=== PATIENT | female | born 1995 | race Hispanic/Latino ===

== ENCOUNTER 2023-03-06 16:11 | Emergency (ER) | payer OTHER ==
[2023-03-06 17:55] LABS: SARS-CoV-2 NAA Rapid Test Not Detected (NotDetected)
== END 2023-03-06 17:05 | disposition home or self-care (01) ==
LOC: CSHERS 16:11
DX: O99.512 Diseases of the respiratory system complicating pregnancy, second trimester (principal); J06.9 Acute upper respiratory infection, unspecified; Z3A.16 16 weeks gestation of pregnancy; Z20.822 Contact with and (suspected) exposure to COVID-19

== ENCOUNTER 2023-07-22 19:36 | Emergency (ER) | payer OTHER ==
[2023-07-23] MEDS ORDERED: HYDROcodone/Acetaminophen 10/325 mg Tablet ONE (02:14)
[2023-07-23] MEDS ORDERED: predniSONE 20 MG TAB ONE (02:14)
== END 2023-07-22 20:07 | disposition home or self-care (01) ==
LOC: CSHERS 19:36
DX: H66.92 Otitis media, unspecified, left ear (principal); H73.92 Unspecified disorder of tympanic membrane, left ear
CPT/HCPCS: 99282

== ENCOUNTER 2023-07-22 20:07 | Day surgery (SDC) | payer OTHER ==
[2023-07-22 20:57] VITALS: BMI 36.8
[2023-07-22 21:12] LABS: Fetal Membranes Rupture No Membranes Rupture (No Rupture)
[2023-07-22] MEDS ORDERED: hydrALAZINE 20 MG/ML VIAL SLOW IVP PRN (21:41)
== END 2023-07-22 21:39 | disposition home or self-care (01) ==
LOC: CSHLD/OP 20:07
PROVIDERS: ATTEND Obstetrics & Gynecology
DX: O47.03 False labor before 37 completed weeks of gestation, third trimester (principal); Z03.71 Encounter for suspected problem with amniotic cavity and membrane ruled out; O99.343 Other mental disorders complicating pregnancy, third trimester; F39 Unspecified mood [affective] disorder; O99.891 Other specified diseases and conditions complicating pregnancy; H66.90 Otitis media, unspecified, unspecified ear; Z79.899 Other long term (current) drug therapy; Z91.018 Allergy to other foods; Z88.5 Allergy status to narcotic agent; Z3A.36 36 weeks gestation of pregnancy
CPT/HCPCS: 84112; 99282

== ENCOUNTER 2023-07-23 01:55 | Emergency (ER) | payer OTHER | END 2023-07-23 02:20 | disposition home or self-care (01) | LOC: CSHERS 01:55 | DX: O99.891 Other specified diseases and conditions complicating pregnancy (principal); H66.92 Otitis media, unspecified, left ear; Z3A.36 36 weeks gestation of pregnancy | CPT/HCPCS: 99283; J7512 ==

== ENCOUNTER 2023-10-02 18:41 | Emergency (ER) | payer OTHER | END 2023-10-02 20:34 | disposition home or self-care (01) | LOC: CSHERS 18:41 | DX: M25.551 Pain in right hip (principal); F17.200 Nicotine dependence, unspecified, uncomplicated | CPT/HCPCS: 81025; 96372; J1885 ==

== ENCOUNTER 2023-12-02 15:12 | Emergency (ER) | payer OTHER | END 2023-12-02 16:13 | disposition home or self-care (01) | LOC: CSHERS 15:12 | DX: S05.01XA Injury of conjunctiva and corneal abrasion without foreign body, right eye, initial encounter (principal); S05.02XA Injury of conjunctiva and corneal abrasion without foreign body, left eye, initial encounter; H10.9 Unspecified conjunctivitis; X58.XXXA Exposure to other specified factors, initial encounter | CPT/HCPCS: 99282 ==

== ENCOUNTER 2025-03-17 19:46 | Emergency (ER) | payer BC ==
[2025-03-17] MEDS ORDERED: Clindamycin 150 MG CAP ONE (20:43)
[2025-03-17] MEDS ORDERED: Boostrix 0.5 ML (Tdap) VIAL (>/=7 yrs of age) ONE (20:43)
== END 2025-03-17 21:29 | disposition home or self-care (01) ==
LOC: CSHERS 19:46
DX: S91.331A Puncture wound without foreign body, right foot, initial encounter (principal); F17.200 Nicotine dependence, unspecified, uncomplicated; Z23 Encounter for immunization; Z79.899 Other long term (current) drug therapy; W25.XXXA Contact with sharp glass, initial encounter; Y92.009 Unspecified place in unspecified non-institutional (private) residence as the place of occurrence of the external cause
CPT/HCPCS: 90471; 90715

== ENCOUNTER 2025-04-10 21:39 | Emergency (ER) | payer BC ==
[2025-04-10] MEDS ORDERED: Acetaminophen 500 MG TAB ONE (22:14)
== END 2025-04-10 22:42 ==
LOC: CSHERS 21:39
DX: R10.30 Lower abdominal pain, unspecified (principal); F17.290 Nicotine dependence, other tobacco product, uncomplicated
CPT/HCPCS: 99283

== ENCOUNTER 2025-04-20 12:16 | Emergency (ER) | payer BC ==
[2025-04-20 13:13] LABS: #Basophils 0.07 10x3/uL (0.0-0.2); #Eosinophils 0.13 10x3/uL (0.0-0.5); #Monocytes 0.67 10x3/uL (0.0-1.1); #Neutrophils 9.66 10x3/uL (1.5-8.4); %Basophils 0.5 % (0.0-2.0); %Eosinophils 0.9 % (0.0-6.0); %Lymphocytes 24.4 % (18.0-47.0); %Monocytes 4.8 % (0.0-10.0); %Neutrophils 69.0 % (40.0-75.0); Hematocrit 38.7 % (34.9-44.5); Hemoglobin 12.9 g/dL (12.0-15.5); Mean Corpuscular Hemoglobin 31.0 pg (27.0-33.0); Mean Corpuscular Volume 93.0 fL (81.6-98.3); Platelet Count 350 10x3/uL (150-450); Red Blood Cell (RBC) Count 4.16 10x6/uL (3.90-5.03); White Blood Cell (WBC) Count 14.01 10x3/uL (3.5-10.5)
[2025-04-20 13:27] LABS: ALT (SGPT) 13 U/L (Less than 34); AST (SGOT) 48 U/L (11-34); Albumin 4.4 g/dL (3.1-4.5); Alkaline Phosphatase 65 U/L (40-110); Anion Gap 11 mmol/L (10-20); BUN (Urea Nitrogen) 7 mg/dL (7.0-18.7); Bilirubin, Total 0.2 mg/dL (0.3-1.2); Calc. Creatinine Clearance 0 mL/min (70-130); Calcium 9.0 mg/dL (7.8-10.44); Carbon Dioxide 23 mmol/L (22-29); Chloride 112 mmol/L (98-107); Globulin 3.8 g/dL (2.4-3.5); Glucose 101 mg/dL (70-105); Potassium 3.6 mmol/L (3.5-5.1); Sodium 142 mmol/L (136-145)
== END 2025-04-20 13:20 | disposition home or self-care (01) ==
LOC: CSHERS 12:16
DX: O03.9 Complete or unspecified spontaneous abortion without complication (principal); O99.119 Other diseases of the blood and blood-forming organs and certain disorders involving the immune mechanism complicating pregnancy, unspecified trimester; D72.829 Elevated white blood cell count, unspecified; O99.330 Smoking (tobacco) complicating pregnancy, unspecified trimester; Z55.6 Problems related to health literacy
CPT/HCPCS: 36415; 80053; 84702; 85025; 86850; 86900; 86901; 99283